=== PATIENT | female | born 1965 | race Caucasian/White ===

== ENCOUNTER 2024-01-09 17:00 | Emergency (ER) | payer BC ==
[2024-01-09] MEDS: Ondansetron 4 MG/2 ML SDV IVPUSH ONE ×2 (17:17→21:26)
[2024-01-09 17:19] LABS: BASOPHILS ABSOLUTE AUTO 0.03 K/uL (0.00-0.20); BASOPHILS PERCENT AUTO 0.3 % (0.0-1.0); EOSINOPHILS ABSOLUTE AUTO 0.19 K/uL (0.00-0.45); HEMATOCRIT 41.3 % (37.0-47.0); IMMATURE GRAN ABSOLUTE AUTO 0.05 K/uL (0.00-0.05); IMMATURE GRAN PERCENT AUTO 0.5 % (0.0-0.4); LYMPHOCYTES ABSOLUTE AUTO 2.62 K/uL (1.00-4.80); LYMPHOCYTES PERCENT AUTO 27.3 % (24.0-44.0); MEAN CORPUSCULAR HEMOGLOBIN 30.7 pg (28.0-32.0); MEAN CORPUSCULAR HGB CONC 33.9 g/dL (32.0-36.0); MEAN CORPUSCULAR VOLUME 90.6 fL (83.0-99.0); MEAN PLATELET VOLUME 10.8 fL (9.4-12.3); MONOCYTES ABSOLUTE AUTO 0.72 K/uL (0.00-0.80); MONOCYTES PERCENT AUTO 7.5 % (0.0-8.0); NEUTROPHILS ABSOLUTE AUTO 5.99 K/uL (1.80-7.70); NEUTROPHILS PERCENT AUTO 62.4 % (41.0-71.0); PLATELET COUNT,PLT 249 K/uL (150-400); RED BLOOD CELL COUNT 4.56 M/uL (4.10-5.30)
[2024-01-09] MEDS: Sodium Chloride 0.9% 1,000 ML IV ONE (17:31)
[2024-01-09] MEDS: Ketorolac 30 MG/ML SDV IVPUSH ONE (17:40)
[2024-01-09 17:41] LABS: A/G RATIO 1.3 (0.9-1.6); ALBUMIN 4.1 g/dL (3.4-5.0); BILIRUBIN TOTAL 1.3 mg/dL (0.2-1.0); CALCIUM 9.8 mg/dL (8.5-10.1); CARBON DIOXIDE,CO2 25.3 mmol/L (21.0-32.0); CREATININE 0.9 mg/dL (0.6-1.0); EST CRCL DRUG DOSING (CG) 62.23 mL/min; POTASSIUM,K 3.5 mmol/L (3.5-5.1); PROTEIN TOTAL,TP 7.3 g/dL (6.4-8.2)
[2024-01-09 18:30] LABS: APPEARANCE,URINE SLT CLOUDY; BILIRUBIN,URINE NEGATIVE (NEGATIVE); COLOR,URINE OTHER; GLUCOSE,URINE NEGATIVE (NEGATIVE); KETONES,URINE NEGATIVE (NEGATIVE); LEUKOCYTE ESTERASE,URINE TRACE (NEGATIVE); NITRITE,URINE NEGATIVE (NEGATIVE); OCCULT BLOOD,URINE NEGATIVE (NEGATIVE); PROTEIN,URINE NEGATIVE (NEGATIVE); UROBILINOGEN,URINE 0.2 EU/dL (<2.0)
[2024-01-09 18:54] LABS: BACTERIA,URINE FEW (NEGATIVE); EPITHELIAL CELLS,URINE MODERATE (NONE-FEW); RBC,URINE 0-1 (0-2/HPF)
[2024-01-09] MEDS: Iopamidol 755 MG/ML 500 ML Multipack Bottle IVPUSH STA (19:07)
[2024-01-09] MEDS: oxyCODONE 5 MG Tab PO ONE (21:25)
[2024-01-09] MEDS: Sodium Chloride 0.9% 2.5 ML Syringe FLUSH PRN (21:26)
[2024-01-09] MEDS: Sodium Chloride 0.9% 10 ML Syringe FLUSH PRN (21:26)
== END 2024-01-09 21:29 | disposition home or self-care (01) ==
LOC: MW.ED 17:00
DX: K52.9 Noninfective gastroenteritis and colitis, unspecified (principal); Z88.8 Allergy status to other drugs, medicaments and biological substances
CPT/HCPCS: 36415; 74177; 80053; 81001; 83690; 85025; 96361; 96374; 96375; 96376; 99284; A9270; J1885; J2405; J3490; J7030; Q9967; 99283